=== PATIENT | male | born 2005 | race Caucasian/White ===

== ENCOUNTER 2024-10-12 17:52 | Emergency (ER) | payer OTHER, SELFPAY ==
--- NOTE | ~2024-10-12 | XR_ITS ---
EXAMINATION: XR chest 2V Exam Date/Time: 10/12/2024 18:32 INVESTMENT ACCOUNTANT HISTORY: cp Comparison: None. RESULT: Lines, tubes, and devices: None. Lungs and pleura: Clear. Cardiomediastinal silhouette: Normal. Other: No acute osseous or upper abdominal finding. IMPRESSION: No acute cardiopulmonary process. Reviewed, dictated and finalized at location K. STMENT ACCOUNTANT
--- NOTE | 2024-10-12 17:57 | ECG_ITS ---
Test Date: 2024-10-12 18:10:24 Measurements Intervals [place] Rate: 120 P: 72 [place]: 140 QRS: 56 QRSD: 92 T: 62 QT: 331 QTc: 469 Interpretive Statements SINUS TACHYCARDIA MINIMAL VOLTAGE CRITERIA FOR LVH, CONSIDER NORMAL VARIANT [MEETS CRITERIA IN ONE OF: R(aVL), S(V1), R(V5), R(V5/V6)+S(V1)] NONSPECIFIC T-WAVE ABNORMALITY ABNORMAL ECG Electronically Signed On 10-13-2024 10:40:30 [facility] MATE by Gil Dial M.D.
[2024-10-12 17:59] VITALS: BP 157/99; PULSE 113; RESP 20; TEMP 36.6; O2SAT 100
--- NOTE | 2024-10-12 18:14 | ED.CHESTPAIN ---
HPI - Chest Pain General Chief Complaint: Chest Pain Stated Complaint: Chest tightness after smoking marijuana Focused HPI: This is a 19 year old male who presents to the ED via EMS for chief complaint of chest tightness and palpitations after marijuana use this evening. Endorses associated numbness/tingling going down the back of the neck into the bilateral upper extremities. States that the chest feels tight but not necessarily overly painful. Denies cardiac history or other medical history. States that he has used marijuana in the past but never had a reaction like this. Denies any other medical complaints GENERAL: Well-appearing, well-nourished, and in no acute distress. HEAD: Normocephalic, atraumatic. CHEST: Clear to auscultation. No respiratory distress. HEART: Regular rate and rhythm. NEURO: Alert and oriented x3. Patient screened in triage and initial orders placed. Additional care and disposition to be based upon diagnostic testing and treatment. Source: patient Mode of arrival: EMS Limitations: no limitations Related Data Allergies Allergy/AdvReac Type Severity Reaction Status Date / Time No Known Allergies Allergy Verified 10/12/24 18:01 Course Vital Signs Vital signs: Vital Signs Temperature 97.9 F 10/12/24 17:59 Pulse Rate 113 H 10/12/24 17:59 Respiratory Rate 20 10/12/24 17:59 Blood Pressure 157/99 H 10/12/24 17:59 Pulse Oximetry 100 10/12/24 17:59 Oxygen Delivery Room Air 10/12/24 17:59 Temperature 97.9 F 10/12/24 17:59 Pulse Rate 113 H 10/12/24 17:59 Respiratory Rate 20 10/12/24 17:59 Blood Pressure 157/99 H 10/12/24 17:59 Pulse Oximetry 100 10/12/24 17:59 Oxygen Delivery Room Air 10/12/24 17:59 Discharge Plan Discharge Patient Language: Belarusian Follow-up/Referrals: PHYSICIAN,SENIOR ESCROW OFFICER [Primary Care Provider] -
[2024-10-12 18:37] LABS: Basophils Absolute Auto 0.1 K/mm3 (0.0-0.1); Basophils Percent Auto 0.5 % (0.2-1.2); Eosinophils Percent Auto 0.4 % (0-4.4); Hematocrit 46.9 % (42.0-52.0); Hemoglobin 16.9 g/dL (14.0-18.0); Immature Granulocyte Absolute 0.02 K/mm3 (0.00-0.031); Immature Granulocyte Percent A 0.2 % (0-0.5); Lymphocytes Absolute Auto 1.27 K/mm3 (0.9-3.2); Lymphocytes Percent Auto 13.2 % (18.3-44.2); Mean Corpuscular Hemoglobin 32.1 pg (26-34); Mean Platelet Volume 10.6 fl (7.4-10.4); Monocytes Absolute Auto 0.8 K/mm3 (0.1-0.6); Monocytes Percent Auto 7.9 % (2.6-8.5); Neutrophils Absolute Auto 7.5 K/mm3 (1.3-6.7); Neutrophils Percent Auto 77.8 % (45.5-73.1); Platelet Count Result 223 k/mm3 (150-375); Red Blood Count 5.27 M/mm3 (4.6-6.20); Red Cell Distribution Width 11.5 % (11.5-14.5); White Blood Count 9.6 K/mm3 (4.5-10.0)
[2024-10-12 18:48] LABS: Alanine Aminotransferase 23 U/L (6-50); Alkaline Phosphatase 85 U/L (38-126); Anion Gap 10 mmol/L (4-12); Aspartate Amino Transferase 37 U/L (17-59); Bilirubin,Total 1.4 mg/dL (0.2-1.3); Blood Urea Nitrogen 11 mg/dL (9-20); Calcium 9.2 mg/dL (8.4-10.2); Carbon Dioxide 29 mmol/L (22-30); Chloride 102 mmol/L (98-107); Estimated CRCL calculation 102 ml/min; Estimated Glomerular Filt Rate > 60; Glucose 97 mg/dL (65-110); Lipase 109 U/L (23-300); Potassium 4.1 mmol/L (3.4-5.0); Sodium 141 mmol/L (137-145)
[2024-10-12 18:59] VITALS: O2SAT 98
[2024-10-12 18:59] LABS: Troponin I < 0.012 ng/mL (0.000-0.034)
[2024-10-12 19:00] VITALS: BP 154/102; PULSE 105; RESP 20; O2SAT 100; O2SAT 98
[2024-10-12 19:48] LABS: Add Urine Microscopic? NO; Appearance Urine Clear (Clear); Bilirubin Urine Negative (Negative); Blood Urine Negative (Negative); Color Urine Yellow (Yellow); Glucose Urine UA Negative (Negative); Ketones Urine Negative (Negative); Leukocyte Esterase Ur Negative LEU/UL (Negative); Nitrate Urine Negative (Negative); Protein Urine Negative (Negative); Specific Grav Ur 1.009 (1.001-1.035)
[2024-10-12 21:13] LABS: Troponin I < 0.012 ng/mL (0.000-0.034)
[2024-10-12 21:33] LABS: Thyroid Stimulating Hormone Reflex 0.639 uIU/mL (0.465-4.68)
--- NOTE | 2024-10-12 21:57 | ED.CHESTPAIN ---
HPI - Chest Pain General Chief Complaint: Chest Pain Stated Complaint: Chest tightness after smoking marijuana Time Seen by Provider: 10/12/24 19:38 Source: patient Mode of arrival: EMS Limitations: no limitations History of Present Illness HPI narrative: 19-year-old male presents emergency department via EMS with mother at bedside for palpitations. Patient states this afternoon he smoked marijuana in 20 minutes after using the marijuana he began having palpitations and fluttering in his chest. He reports associated shortness of breath, numbness and tingling to his hands. States he had the sensation in his chest wall for approximately 45 minutes until it spontaneously resolved when ambulance arrived to bring him to the ED. he has no past medical history. Denies other drug use beyond marijuana. Denies alcohol use. At the time of my evaluation patient states he has returned to his normal state of health. Related Data Allergies Allergy/AdvReac Type Severity Reaction Status Date / Time No Known Allergies Allergy Verified 10/12/24 18:01 Review of Systems Review of Systems: All systems reviewed & are unremarkable except as noted in HPI and below Exam Narrative: GENERAL: Well-appearing, well-nourished, and in no acute distress. HEAD: Normocephalic, atraumatic. EYES: EOMI. ENT: Nares clear, no rhinorrhea or epistaxis. Mucous membranes moist. NECK: Supple. CHEST: Clear to auscultation. No respiratory distress. HEART: Regular rate and rhythm. No murmur heard. Normal peripheral pulses. ABDOMEN: Soft, nontender, nondistended, normal active bowel sounds. EXTREMITIES: Normal range of motion. No edema. SKIN: Warm, dry, no rash. NEURO: No focal deficits. Alert and oriented x3 Course Vital Signs Vital signs: Vital Signs Temperature 97.9 F 10/12/24 17:59 Pulse Rate 113 H 10/12/24 17:59 Respiratory Rate 20 10/12/24 17:59 Blood Pressure 157/99 H 10/12/24 17:59 Pulse Oximetry 100 10/12/24 17:59 Oxygen Delivery Room Air 10/12/24 17:59 Temperature 97.9 F 10/12/24 17:59 Pulse Rate 105 H 10/12/24 19:00 Respiratory Rate 20 10/12/24 19:00 Blood Pressure 154/102 H 10/12/24 19:00 Pulse Oximetry 98 10/12/24 19:00 Oxygen Delivery Room Air 10/12/24 19:00 MDM - Chest Pain MDM Narrative Medical decision making narrative: 19-year-old male presents to the emergency department via EMS with mother at bedside for palpitations that began 20 minutes after you smoking marijuana. Patient reports associated shortness of breath and paresthesias to his upper extremities. Episode lasted approximately 45 minutes. Upon the time of my evaluation patient is in his normal state of health and has no complaints. Triage vitals are significant for tachycardia 113 which have improved. He is afebrile and nontoxic appearing. He is resting comfortably in the exam bed and well appearing. EKG shows sinus tachycardia, normal CT interval of 140, normal QRS duration, normal QTC, no ischemic changes, no delta waves. CBC and chemistries are unremarkable. UA unremarkable. Chest x-ray shows no acute cardiopulmonary findings. Magnesium normal. TSH normal. Patient and mother updated on workup. He remains well appearing. Suspect anxiety secondary to marijuana use. Instructed to discontinue drug use and follow-up PCP. Return precautions discussed. He and his mother agreeable with the plan verbalized understanding. Discharged in stable condition. Lab Data 10/12/24 17:57 10/12/24 17:48 Labs: Lab Results 10/12/24 10/12/24 10/12/24 Range/Units 17:48 17:57 18:19 WBC 9.6 (4.5-10.0) K/mm3 RBC 5.27 (4.6-6.20) M/mm3 Hgb 16.9 (14.0-18.0) g/dL Hct 46.9 (42.0-52.0) % MCV 89.0 (80-100) fl MCH 32.1 (26-34) pg MCHC 36.0 (32-36) g/dl RDW 11.5 (11.5-14.5) % Plt Count 223 (150-375) k/mm3 MPV 10.6 H (7.4-10.4) fl Immature Gran % (Auto) 0.2 (0-0.5) % Neut % (Auto) 77.8 H (45.5-73.1) % Lymph % (Auto) 13.2 L (18.3-44.2) % [place] % (Auto) 7.9 (2.6-8.5) % Eos % (Auto) 0.4 (0-4.4) % Baso % (Auto) 0.5 (0.2-1.2) % Lymph # (Auto) 1.27 (0.9-3.2) K/mm3 [place] # (Auto) 0.8 H (0.1-0.6) K/mm3 Eos # (Auto) 0.0 (0-0.3) K/mm3 Baso # (Auto) 0.1 (0.0-0.1) K/mm3 Abs Immat Gran (auto) 0.02 (0.00-0.031) K/mm3 Absolute Neuts (auto) 7.5 H (1.3-6.7) K/mm3 Absolute Nucleated RBC 0.000 (0.0-0.012) K/mm3 Nucleated RBC % 0.0 (0.0-0.2) % PT 13.0 (11.1-14.7) Seconds INR 1.0 APTT 22.0 L (22.3-36.8) Seconds Sodium 141 (137-145) mmol/L Potassium 4.1 (3.4-5.0) mmol/L Chloride 102 (98-107) mmol/L Carbon Dioxide 29 (22-30) mmol/L Anion Gap 10 (4-12) mmol/L BUN 11 (9-20) mg/dL Creatinine 0.92 (0.7-1.3) mg/dL Estim Creat Clear Calc 102 ml/min Estimated GFR > 60 (59 - ) Glucose 97 (65-110) mg/dL Calcium 9.2 (8.4-10.2) mg/dL Magnesium 2.0 (1.6-2.3) mg/dL Total Bilirubin 1.4 H (0.2-1.3) mg/dL AST 37 (17-59) U/L ALT 23 (6-50) U/L Alkaline Phosphatase 85 (38-126) U/L Troponin I < 0.012 (0.000-0.034) ng/mL Total Protein 8.0 (6.3-8.2) g/dL Albumin 5.0 (3.5-5.1) g/dL Lipase 109 (23-300) U/L TSH (Reflex) (0.465-4.68) uIU/mL Urine Color (Yellow) Urine Appearance (Clear) Urine pH (5.0-9.0) Ur Specific [place] (1.001-1.035) Urine Protein (Negative) mg/dL Urine Glucose (UA) (Negative) mg/dL Urine Ketones (Negative) mg/dL Ur Blood (Man) (Negative) Urine Nitrate (Negative) Urine Bilirubin (Negative) Urine Urobilinogen (<2.0) mg/dL Leukocyte Esterase Rfl (Negative) JOSEPHINE/UL 10/12/24 10/12/24 Range/Units 19:34 20:35 WBC (4.5-10.0) K/mm3 RBC (4.6-6.20) M/mm3 Hgb (14.0-18.0) g/dL Hct (42.0-52.0) % MCV (80-100) fl MCH (26-34) pg MCHC (32-36) g/dl RDW (11.5-14.5) % Plt Count (150-375) k/mm3 MPV (7.4-10.4) fl Immature Gran % (Auto) (0-0.5) % Neut % (Auto) (45.5-73.1) % Lymph % (Auto) (18.3-44.2) % [place] % (Auto) (2.6-8.5) % Eos % (Auto) (0-4.4) % Baso % (Auto) (0.2-1.2) % Lymph # (Auto) (0.9-3.2) K/mm3 [place] # (Auto) (0.1-0.6) K/mm3 Eos # (Auto) (0-0.3) K/mm3 Baso # (Auto) (0.0-0.1) K/mm3 Abs Immat Gran (auto) (0.00-0.031) K/mm3 Absolute Neuts (auto) (1.3-6.7) K/mm3 Absolute Nucleated RBC (0.0-0.012) K/mm3 Nucleated RBC % (0.0-0.2) % PT (11.1-14.7) Seconds INR APTT (22.3-36.8) Seconds Sodium (137-145) mmol/L Potassium (3.4-5.0) mmol/L Chloride (98-107) mmol/L Carbon Dioxide (22-30) mmol/L Anion Gap (4-12) mmol/L BUN (9-20) mg/dL Creatinine (0.7-1.3) mg/dL Estim Creat Clear Calc ml/min Estimated GFR (59 - ) Glucose (65-110) mg/dL Calcium (8.4-10.2) mg/dL Magnesium (1.6-2.3) mg/dL Total Bilirubin (0.2-1.3) mg/dL AST (17-59) U/L ALT (6-50) U/L Alkaline Phosphatase (38-126) U/L Troponin I < 0.012 (0.000-0.034) ng/mL Total Protein (6.3-8.2) g/dL Albumin (3.5-5.1) g/dL Lipase (23-300) U/L TSH (Reflex) 0.639 (0.465-4.68) uIU/mL Urine Color Yellow (Yellow) Urine Appearance Clear (Clear) Urine pH 7.0 (5.0-9.0) Ur Specific [place] 1.009 (1.001-1.035) Urine Protein Negative (Negative) mg/dL Urine Glucose (UA) Negative (Negative) mg/dL Urine Ketones Negative (Negative) mg/dL Ur Blood (Man) Negative (Negative) Urine Nitrate Negative (Negative) Urine Bilirubin Negative (Negative) Urine Urobilinogen 1.0 (<2.0) mg/dL Leukocyte Esterase Rfl Negative (Negative) JOSEPHINE/UL Discharge Plan Discharge Clinical Impression: Adverse effect of cannabis Qualifiers: Encounter type: initial encounter Qualified Code(s): T40.715A - Adverse effect of cannabis, initial encounter Patient Disposition: Home, Self-Care Condition: Stable Instructions: Antibiotic Form, Heart Palpitations (DC) Additional Instructions: Please stop using marijuana. Follow up with her primary care provider. Return to the emergency department for chest pain, shortness of breath, lightheadedness, loss of consciousness or other concerning symptoms. Patient Language: Tajik Follow-up/Referrals: PHYSICIAN,WIND COMMISSIONING TECHNICIAN [Primary Care Provider] -
[2024-10-12 22:05] VITALS: BP 129/82; PULSE 88; RESP 20; TEMP 36.6; O2SAT 99
== END 2024-10-12 22:06 | disposition home or self-care (01) ==
PROVIDERS: Emergency Medicine; Physician Assistant; Emergency Provider Physician Assistant
DX: T40.711A Poisoning by cannabis, accidental (unintentional), initial encounter (principal); R00.0 Tachycardia, unspecified
CPT/HCPCS: 36415; 71046; 80053; 81003; 83690; 83735; 84443; 84484; 85025; 85610; 85730; 93005; 99284